=== PATIENT | female | born 1980 | race Two or more races ===

== ENCOUNTER 2020-07-22 10:18 | Outpatient (REF) | payer MEDICAID, SELFPAY | END 2020-07-22 10:19 | disposition home or self-care (01) | LOC: HO.LAB 10:18 | PROVIDERS: Visit Provider Internal Medicine | DX: Z20.828 Contact with and (suspected) exposure to other viral communicable diseases (principal) | CPT/HCPCS: C9803; U0003 ==

== ENCOUNTER 2020-10-05 14:27 | Outpatient (REF) | payer MEDICAID, SELFPAY ==
[2020-10-05 16:26] LABS: MANUAL DIFF FLAG NO
[2020-10-05 16:29] LABS: Basophils Percent Auto 0.2 % (0-2); Eosinophils Absolute Auto 0.2 X10*3/uL (0.0-0.4); Eosinophils Percent Auto 2.7 % (0-4); Hematocrit 35.5 % (37-47); Hemoglobin 10.5 g/dl (12.0-16.0); Imm Gran Abs Auto 0.04 X10*3/uL (0.00-0.03); Imm Gran Pct Auto 0.4 % (0.0-0.4); Lymphocytes Absolute Auto 2.1 X10*3/uL (1.2-4.9); Lymphocytes Percent Auto 23.6 % (20-40); Mean Corpuscular HGB Conc 29.6 g/dl (31.0-35.0); Mean Corpuscular Hemoglobin 23.1 pg (27.0-33.0); Mean Corpuscular Volume 78.2 fL (80-98); Mean Platelet Volume 9.7 fL (9.4-12.3); Monocytes Absolute Auto 0.7 X10*3/uL (0.1-1.2); Monocytes Percent Auto 7.9 % (2-11); Neutrophils Absolute Auto 5.9 X10*3/uL (2.0-8.3); Neutrophils Percent Auto 65.2 % (45-73); Platelet Count 321 X10*3/uL (160-400); Red Blood Count 4.54 X10*6/uL (4.20-5.50); Red Cell Distribution Width 14.1 % (11.0-16.0)
[2020-10-05 16:51] LABS: Anion Gap 11 (12-20); Blood Urea Nitrogen 12 mg/dL (9-16); Carbon Dioxide 27 mmol/L (22-29); Chloride 106 mmol/L (96-108); Estimated Glomerular Filt Rate > 60; Glucose Random 76 mg/dL (60-115); Potassium 3.7 mmol/l (3.3-5.1); Sodium 140 mmol/L (135-145)
[2020-10-05 16:52] LABS: D Dimer < 200 NG/ML
[2020-10-05 17:17] LABS: Erythrocyte Sedimentation Rate 16 MM/HR (0-20)
[2020-10-07 02:27] LABS: Cyclic Citrullinated Peptide <16 UNITS
[2020-10-07 11:57] LABS: IgA 438 mg/dL (47-310); IgG 1124 mg/dL (600-1640); IgM 94 mg/dL (50-300)
== END 2020-10-05 14:28 | disposition home or self-care (01) ==
LOC: HO.LAB 14:27
PROVIDERS: PCP Internal Medicine Geriatric Medicine; Visit Provider Hospitalist
DX: J18.9 Pneumonia, unspecified organism (principal); J45.909 Unspecified asthma, uncomplicated; R07.9 Chest pain, unspecified; R91.8 Other nonspecific abnormal finding of lung field
CPT/HCPCS: 36415; 80048; 82784; 82785; 85025; 85379; 85652; 86003; 86200; 99202

== ENCOUNTER 2020-11-05 11:03 | Outpatient (REF) | payer MEDICAID, SELFPAY | END 2020-11-05 11:04 | disposition home or self-care (01) | LOC: HO.RESP 11:03 | PROVIDERS: PCP Internal Medicine Geriatric Medicine; Visit Provider Hospitalist | DX: J45.909 Unspecified asthma, uncomplicated (principal) | CPT/HCPCS: 94060; 94727; 94729; 99212 ==

== ENCOUNTER 2020-11-12 13:46 | Outpatient (REF) | payer MEDICAID, SELFPAY ==
--- NOTE | ~2020-11-12 | CT_ITS ---
EXAMINATION: CT CHEST WITHOUT CONTRAST CLINICAL INFORMATION: Pneumonia. COMPARISON: Chest 10/09/2019. TECHNIQUE: Multidetector volumetric CT imaging of the chest was done. Axial MIP volume rendering provided. Sagittal and coronal reformatted images were obtained. This CT examination was performed using dose optimization techniques as appropriate, variously including the following: *Automated exposure control *Adjustment of mA and/or kV according to patient size (this includes techniques or standardized protocols for targeted exams where dose is matched to indication/reason for exam; i.e. extremities or head) *Use of iterative reconstruction technique DLP: 175 mGy-cm FINDINGS: [employer]: Unremarkable. LUNGS: The lungs are well expanded and clear of acute pneumonic consolidation. There is a 3 mm calcified nodule right upper lobe image 189/5, noncalcified 6 mm nodule right lower lobe axial image 253/5, 1 mm nodule left lower lobe axial image 259/5, 2 mm calcified nodule right lung base image 447/5. No additional nodule seen. There is no ground-glass density. MEDIASTINUM: The thyroid lobes are symmetrical and normal. Central trachea and the bronchi are widely patent. Heart size and the great vessels are normal caliber. No pericardial effusion seen. No abnormal-sized mediastinal lymph nodes. Thyroid lobes are symmetrical and normal. PLEURA: There is no pleural effusion. No pleural mass or thickening. AXILLA: There are small shotty lymph nodes seen in left axilla. The largest lymph node measuring 1.2 cm and appears benign. UPPER ABDOMEN: Visualized liver, spleen, pancreas and bilateral adrenal glands are unremarkable. There are post gastric sleave and cholecystectomy changes. OSSEOUS STRUCTURES: No lytic or sclerotic process seen. CT/CT chest wo con IMPRESSION: A few scattered calcified nodules likely granulomas. There is a 6 mm noncalcified nodule right lower lobe. Recommend follow-up chest in 6-12 months followed by 18-24 months. No abnormal mediastinal or axillary lymphadenopathy seen.
== END 2020-11-12 13:47 | disposition home or self-care (01) ==
LOC: HO.CT 13:46
PROVIDERS: Visit Provider Hospitalist
DX: J18.9 Pneumonia, unspecified organism (principal); R91.8 Other nonspecific abnormal finding of lung field
CPT/HCPCS: 71250

== ENCOUNTER 2021-09-14 12:32 | Outpatient (REF) | payer MEDICAID, SELFPAY ==
--- NOTE | ~2021-09-14 | XR_ITS ---
EXAMINATION: XR CHEST CLINICAL INFORMATION: Asthma COMPARISON: Previous chest x-ray September [address] November 2020 TECHNIQUE: 2 views of the chest were obtained. FINDINGS: No significant abnormality is noted involving the heart, lungs, mediastinum, bony thorax or soft tissues. XR/XR chest 2V IMPRESSION: Unremarkable examination.
[2021-09-14 13:04] LABS: MANUAL DIFF FLAG NO
[2021-09-14 14:04] LABS: Basophils Percent Auto 0.3 % (0-2); Eosinophils Absolute Auto 0.7 X10*3/uL (0.0-0.4); Eosinophils Percent Auto 9.5 % (0-4); Hematocrit 39.1 % (37.0-47.0); Hemoglobin 11.9 g/dl (12.0-16.0); Imm Gran Abs Auto 0.03 X10*3/uL (0.00-0.03); Imm Gran Pct Auto 0.4 % (0.0-0.4); Lymphocytes Absolute Auto 1.9 X10*3/uL (1.2-4.9); Lymphocytes Percent Auto 24.3 % (20-40); Mean Corpuscular HGB Conc 30.4 g/dl (31.0-35.0); Mean Corpuscular Hemoglobin 24.6 pg (27.0-33.0); Monocytes Absolute Auto 0.5 X10*3/uL (0.1-1.2); Monocytes Percent Auto 5.8 % (2-11); Neutrophils Absolute Auto 4.7 x10*3/uL (2.0-8.3); Neutrophils Percent Auto 59.7 % (45-73); Platelet Count 336 X10*3/uL (160-400); Red Blood Count 4.83 X10*6/uL (4.20-5.50); Red Cell Distribution Width 13.2 % (11.0-16.0); White Blood Count 7.8 X10*3/uL (4.8-10.8)
[2021-09-14 14:15] LABS: D Dimer High Sensitivity 155 NG/ML
[2021-09-14 14:48] LABS: Ferritin 44 ng/mL (10-250)
[2021-09-14 14:54] LABS: Erythrocyte Sedimentation Rate 17 MM/HR (0-20)
[2021-09-16 01:48] LABS: Cyclic Citrullinated Peptide <16 UNITS
== END 2021-09-14 12:33 | disposition home or self-care (01) ==
LOC: HO.XRAY 12:32
PROVIDERS: Hospitalist; PCP Internal Medicine Geriatric Medicine; Visit Provider Internal Medicine
DX: R07.9 Chest pain, unspecified (principal); J45.21 Mild intermittent asthma with (acute) exacerbation; R91.8 Other nonspecific abnormal finding of lung field
CPT/HCPCS: 36415; 71046; 82728; 85025; 85379; 85652; 86200; 87040

== ENCOUNTER 2021-10-26 15:38 | Outpatient (REF) | payer MEDICAID, SELFPAY ==
--- NOTE | ~2021-10-26 | XR_ITS ---
EXAMINATION: XR FOOT, RIGHT CLINICAL INFORMATION: Pain in right foot. COMPARISON: None TECHNIQUE: AP, lateral, and oblique views of the right foot. FINDINGS: The bones and soft tissues are normal. No fracture. Alignment is anatomic. Joint spaces are maintained. XR/XR foot RT min 3V IMPRESSION: Unremarkable right foot.
== END 2021-10-26 15:39 | disposition home or self-care (01) ==
LOC: HO.XRAY 15:38
PROVIDERS: PCP Internal Medicine Geriatric Medicine; Visit Provider Nurse Practitioner Family
DX: M79.671 Pain in right foot (principal)
CPT/HCPCS: 73630

== ENCOUNTER → 2021-11-29 15:28 | Outpatient (BNVA) | payer MEDICAID, SELFPAY | PROVIDERS: PCP Internal Medicine Geriatric Medicine; Visit Provider Hospitalist | DX: J45.40 Moderate persistent asthma, uncomplicated (principal); J40 Bronchitis, not specified as acute or chronic; J18.9 Pneumonia, unspecified organism; J31.0 Chronic rhinitis; R91.8 Other nonspecific abnormal finding of lung field; Z91.013 Allergy to seafood; Z88.8 Allergy status to other drugs, medicaments and biological substances; Z91.041 Radiographic dye allergy status | CPT/HCPCS: 99212 ==

== ENCOUNTER → 2021-12-02 09:02 | Outpatient (BNVA) | payer MEDICAID, SELFPAY | PROVIDERS: PCP Internal Medicine Geriatric Medicine; Visit Provider Physician Assistant | DX: S90.31XA Contusion of right foot, initial encounter (principal) | CPT/HCPCS: 99202 ==

== ENCOUNTER 2022-04-08 10:43 | Outpatient (REF) | payer MEDICAID, SELFPAY ==
--- NOTE | ~2022-04-08 | XR_ITS ---
EXAMINATION: XR SHOULDER, RIGHT CLINICAL INFORMATION: Pain. COMPARISON: Chest radiograph 09/14/2021. TECHNIQUE: Four views of the right shoulder. FINDINGS: The bones and soft tissues are normal. No fracture. Glenohumeral and acromioclavicular alignment is anatomic with normal joint space. No abnormal soft tissue calcifications. XR/XR shoulder RT min 2V IMPRESSION: Normal right shoulder.
--- NOTE | ~2022-04-08 | XR_ITS ---
EXAMINATION: XR ELBOW, RIGHT CLINICAL INFORMATION: Pain. COMPARISON: None TECHNIQUE: AP, lateral, and oblique views of the right elbow. FINDINGS: Subtle cortical irregularity along the coronoid process, visualized on the lateral view. Joint alignment is anatomic. No joint effusion. Normal appearance of the soft tissues. XR/XR elbow RT min 3V IMPRESSION: Subtle cortical irregularity along the anterior surface of the coronoid process, nonspecific, recommend correlation with point tenderness.
== END 2022-04-08 10:44 | disposition home or self-care (01) ==
LOC: HO.XRAY 10:43
PROVIDERS: Absent Provider Internal Medicine Geriatric Medicine; PCP Internal Medicine Geriatric Medicine; Visit Provider Emergency Medicine
DX: M25.511 Pain in right shoulder (principal); M25.521 Pain in right elbow
CPT/HCPCS: 73030; 73080

== ENCOUNTER → 2022-05-11 09:50 | Outpatient (BNVA) | payer MEDICAID, SELFPAY | PROVIDERS: PCP Internal Medicine Geriatric Medicine; Visit Provider Physician Assistant | DX: M77.11 Lateral epicondylitis, right elbow (principal) | CPT/HCPCS: 99212 ==

== ENCOUNTER → 2022-06-13 09:18 | Outpatient (BNVA) | payer MEDICAID, SELFPAY | PROVIDERS: PCP Internal Medicine Geriatric Medicine; Visit Provider Dietitian, Registered | DX: E66.9 Obesity, unspecified (principal); Z68.34 Body mass index [BMI] 34.0-34.9, adult; Z71.3 Dietary counseling and surveillance | CPT/HCPCS: 97802 ==

== ENCOUNTER → 2022-11-01 12:53 | Outpatient (BNVA) | payer MEDICAID, SELFPAY | PROVIDERS: PCP Internal Medicine Geriatric Medicine; Visit Provider Dietitian, Registered | DX: E66.9 Obesity, unspecified (principal); Z68.35 Body mass index [BMI] 35.0-35.9, adult | CPT/HCPCS: 97803 ==

== ENCOUNTER → 2023-01-02 10:43 | Outpatient (BNVA) | payer MEDICAID, SELFPAY | PROVIDERS: PCP Internal Medicine Geriatric Medicine; Visit Provider Dietitian, Registered | DX: E66.9 Obesity, unspecified (principal); Z68.33 Body mass index [BMI] 33.0-33.9, adult | CPT/HCPCS: 97803 ==

== ENCOUNTER 2023-10-20 08:52 | Outpatient (REF) | payer MEDICAID, SELFPAY ==
[2023-10-20 11:40] LABS: MANUAL DIFF FLAG NO
[2023-10-20 11:47] LABS: Basophils Percent Auto 0.5 % (0-2); Eosinophils Absolute Auto 0.3 X10*3/uL (0.0-0.4); Eosinophils Percent Auto 3.9 % (0-4); Hematocrit 41.1 % (37.0-47.0); Hemoglobin 12.8 g/dl (12.0-16.0); Imm Gran Abs Auto 0.03 X10*3/uL (0.00-0.03); Imm Gran Pct Auto 0.5 % (0.0-0.4); Lymphocytes Absolute Auto 1.5 X10*3/uL (1.2-4.9); Lymphocytes Percent Auto 22.6 % (20-40); Mean Corpuscular HGB Conc 31.1 g/dl (31.0-35.0); Mean Corpuscular Hemoglobin 26.3 pg (27.0-33.0); Mean Corpuscular Volume 84.4 fL (80.0-98.0); Mean Platelet Volume 9.9 fL (9.4-12.3); Monocytes Absolute Auto 0.5 X10*3/uL (0.1-1.2); Monocytes Percent Auto 8.4 % (2-11); Neutrophils Absolute Auto 4.1 x10*3/uL (2.0-8.3); Neutrophils Percent Auto 64.1 % (45-73); Platelet Count 320 X10*3/uL (160-400); Red Blood Count 4.87 X10*6/uL (4.20-5.50); Red Cell Distribution Width 12.9 % (11.0-16.0); White Blood Count 6.4 X10*3/uL (4.8-10.8)
[2023-10-20 12:15] LABS: Iron 76 mcg/dL (30-160); Percent Iron Saturation 25 % (15-50); Total Iron Binding Capacity 301 mcg/dL (228-428); Unsaturated Iron Binding 225 ug/dL
[2023-10-20 12:30] LABS: Vitamin B12 327 pg/mL (200-900)
== END 2023-10-20 08:53 | disposition home or self-care (01) ==
LOC: HO.HHCL 08:52
PROVIDERS: Visit Provider Internal Medicine Geriatric Medicine
DX: D50.8 Other iron deficiency anemias (principal); E55.9 Vitamin D deficiency, unspecified; Z90.3 Acquired absence of stomach [part of]
CPT/HCPCS: 36415; 82607; 83540; 85025

== ENCOUNTER 2024-05-15 09:13 | Outpatient (REF) | payer MEDICAID, SELFPAY ==
[2024-05-15 11:08] LABS: MANUAL DIFF FLAG NO
[2024-05-15 11:18] LABS: Basophils Percent Auto 0.2 % (0-2); Hematocrit 42.1 % (37.0-47.0); Hemoglobin 13.1 g/dl (12.0-16.0); Imm Gran Abs Auto 0.03 X10*3/uL (0.00-0.03); Imm Gran Pct Auto 0.3 % (0.0-0.4); Lymphocytes Absolute Auto 0.9 X10*3/uL (1.2-4.9); Lymphocytes Percent Auto 9.7 % (20-40); Mean Corpuscular HGB Conc 31.1 g/dl (31.0-35.0); Mean Corpuscular Hemoglobin 26.2 pg (27.0-33.0); Mean Corpuscular Volume 84.2 fL (80.0-98.0); Mean Platelet Volume 10.3 fL (9.4-12.3); Monocytes Absolute Auto 0.2 X10*3/uL (0.1-1.2); Monocytes Percent Auto 2.6 % (2-11); Neutrophils Percent Auto 87.2 % (45-73); Platelet Count 339 X10*3/uL (160-400); Red Cell Distribution Width 13.5 % (11.0-16.0); White Blood Count 9.2 X10*3/uL (4.8-10.8)
[2024-05-15 11:55] LABS: Blood Urea Nitrogen 11 mg/dL (9-16); Vitamin D 25-OH Total 26.8 ng/mL (>30)
[2024-05-15 12:04] LABS: Vitamin B12 236 pg/mL (200-900)
== END 2024-05-15 09:14 | disposition home or self-care (01) ==
LOC: HO.HHCL 09:13
PROVIDERS: Nurse Practitioner Family; Visit Provider Emergency Medicine
DX: D50.8 Other iron deficiency anemias (principal); R68.89 Other general symptoms and signs
CPT/HCPCS: 36415; 82306; 82607; 84443; 84520; 85025

== ENCOUNTER 2024-07-11 15:02 | Outpatient (REF) | payer MEDICAID, SELFPAY ==
[2024-07-11 15:18] LABS: MANUAL DIFF FLAG NO
[2024-07-11 15:43] LABS: Basophils Percent Auto 0.5 % (0-2); Eosinophils Absolute Auto 0.5 X10*3/uL (0.0-0.4); Eosinophils Percent Auto 9.1 % (0-4); Hematocrit 40.8 % (37.0-47.0); Hemoglobin 13.1 g/dl (12.0-16.0); Imm Gran Abs Auto 0.01 X10*3/uL (0.00-0.03); Imm Gran Pct Auto 0.2 % (0.0-0.4); Lymphocytes Percent Auto 33.8 % (20-40); Mean Corpuscular HGB Conc 32.1 g/dl (31.0-35.0); Mean Corpuscular Hemoglobin 26.6 pg (27.0-33.0); Mean Corpuscular Volume 82.9 fL (80.0-98.0); Mean Platelet Volume 9.7 fL (9.4-12.3); Monocytes Absolute Auto 0.5 X10*3/uL (0.1-1.2); Monocytes Percent Auto 8.4 % (2-11); Neutrophils Absolute Auto 2.8 x10*3/uL (2.0-8.3); Platelet Count 291 X10*3/uL (160-400); Red Blood Count 4.92 X10*6/uL (4.20-5.50); Red Cell Distribution Width 13.4 % (11.0-16.0); White Blood Count 5.9 X10*3/uL (4.8-10.8)
[2024-07-11 16:10] LABS: Alanine Aminotransferase 41 U/L (0-31); Albumin Level 4.2 g/dL (3.5-5.0); Anion Gap 15 (12-20); Aspartate Amino Transferase 26 U/L (5-31); Bilirubin Total 0.2 mg/dL (0.0-1.0); Blood Urea Nitrogen 10 mg/dL (9-16); C Reactive Protein 0.15 mg/dL (< or = 0.50); Calcium 9.4 mg/dL (8.4-10.2); Carbon Dioxide 23 mmol/L (22-29); Chloride 109 mmol/L (96-108); Estimated Glomerular Filt Rate > 60; Glucose Random 99 mg/dL (60-115); Potassium 3.6 mmol/L (3.3-5.1); Sodium 143 mmol/L (135-145); Total Protein 7.6 g/dL (6.5-8.0)
[2024-07-11 16:32] LABS: Alkaline Phosphatase 78 U/L (39-117); Erythrocyte Sedimentation Rate 8 MM/HR (0-20)
[2024-07-17 08:18] LABS: Anti Nuclear Antibody Screen NEGATIVE (NEGATIVE)
== END 2024-07-11 15:03 | disposition home or self-care (01) ==
LOC: HO.LAB 15:02
PROVIDERS: PCP Internal Medicine Geriatric Medicine; Visit Provider Internal Medicine Geriatric Medicine
DX: M25.50 Pain in unspecified joint (principal); T14.8XXA Other injury of unspecified body region, initial encounter; R21 Rash and other nonspecific skin eruption; E06.3 Autoimmune thyroiditis; Z90.3 Acquired absence of stomach [part of]
CPT/HCPCS: 36415; 80053; 85025; 85652; 86038; 86140

== ENCOUNTER 2024-09-24 10:57 | Outpatient (REF) | payer MEDICAID, SELFPAY ==
--- NOTE | ~2024-09-24 | XR_ITS ---
EXAMINATION: XR CHEST CLINICAL INFORMATION: sob, cough COMPARISON: X-ray dated September 14, 2021. TECHNIQUE: 2 views of the chest were obtained. FINDINGS: Pulmonary reticular pattern slightly asymmetric to the right lung with prominence of the interstitial lung markings. No pleural effusion. No pneumothorax. No hyperinflation. Cardiomediastinal silhouette is normal in size. Mild S-shaped curvature of the thoracolumbar spine with mild spondylosis. Vascular clips right upper quadrant abdomen. XR/XR chest 2V IMPRESSION: Concerning acute small airway disease, right lung. Electronically signed by: Misael Peters MD 09/24/2024 12:01 PM [facility]
--- OUTSIDE RECORDS SUMMARY | 2024-09-24 13:00 | XMS_ITS | Continuity of Care Document ---
Author Organization [facility] Address [address] [place] [address]- Care Team Providers Care Lining Presser Name Role Phone Name John HUA Primary Care Physician Encounter [facility] Date(s): 07/30/24 - 08/29/24 [facility] [address] [place] [id number] Attending Physician: Kailey Bella Admitting Physician: Kailey Bella Referring Physician: trKailey Encounter Type: Triage Allergies, Adverse Reactions, Alerts Substance Criticality Severity Reaction Reaction Severity Status povidone iodine topical Active shellfish Active Contrast Dye Active Fish and shellfish causing toxic effect Active Immunizations Given and Recorded Vaccine Date Status Refusal Reason influenza virus vaccine, inactivated 08/29/13 Give n tetanus/diphtheria/pertussis, acel(Tdap) 08/29/13 Given Medications Albuterol = 90 mcg, Inhalation, 2 times a day, 0 Refills, Maintenance, 06/05/11 6:19:49 PM EDT Start Date: 06/05/11 Status: Ordered Repeat number: 1 albuterol 0.083% inhalation solution 3 mL = 2.5 mg, Inhalation, Every 6 hours, # 120 each, 0 Refills, Maintenance, 04/14/16 4:38:10 AM EDT, Solution Start Date: 04/14/16 Status: Ordered Quantity: 120.0 Unit: each Repeat number: 1 albuterol 90 mcg/inh inhalation powder 2 puffs, Inhalation, Every 4 hours, PRN as needed, # 1 each, 0 Refills, Maintenance, 04/14/16 4:38:02AM EDT, Powder Start Date: 04/14/16 Status: Ordered Quantity: 1.0 Unit: each Repeat number: 1 Clomid Tablet 50 mg, By Mouth, Daily, x 5 days, Refills 0, Maintenance, 06/20/19 9:27:20 AM EDT Start Date: 06/20/19 Status: Ordered Repeat number: 1 ferrous sulfate 325 mg oral tablet 1 tablet = 325 mg, By Mouth, 2 times a day, # 60 tablet, 3 Refills, Maintenance, 02/14/19 4:03:21 PM EDT, [id number] Start Date: 02/14/19 Status: Ordered Quantity: 60.0 Unit: tablet Repeat number: 4 ferrous sulfate 325 mg oral tablet 1 tablet = 325 mg, By Mouth, 2 times a day, # 60 tablet, 3 Refills, Maintenance, 02/14/19 4:03:57 PM EDT, Tablet, [id number] Start Date: 02/14/19 Status: Ordered Quantity: 60.0 Unit: tablet Repeat number: 4 Multi Vitamin+ 0 Refills, Maintenance, 06/13/19 9:27:29 AM EDT Start Date: 06/13/19 Status: Ordered Repeat number: 1 Saxenda 18 mg/3 mL subcutaneous solution = 0.6 mg, Subcutaneous Injection, Daily, # 9 mL, 0 Refills, Maintenance, 04/29/23 9:14:00 AM EDT, Solution, Partial fill upon patient request if the prescription is for a schedule II opioid drug. Start Date: 04/29/23 Stop Date: 05/06/23 Status: Ordered Quantity: 9.0 Unit: mL Repeat number: 1 Vitamin B12 2500 mcg sublingual tablet 1 tablet = 2,500 mcg, Sublingual, Daily, # 30 tablet, 0 Refills, Maintenance, 01/30/24 5:04:00 PM EDT, Tablet, [id number], Partial fill upon patient request if the prescription is for a schedule II opioid drug., 160, cm, 01/30/24 9:13:00 EDT, Height, 84, kg, 01/30/24 9:13:00 EDT, Dry Weight Start Date: 01/30/24 Status: Ordered Quantity: 30.0 Unit: tablet Repeat number: 1 Problem List Condition Confirmation Course Effective Dates Status Health St atus Informant Active asthma Confirmed Active Obese class I Confirmed Active Polycystic ovary syndrome Confirmed Active , normal, incidental Confirmed Active Social History Social History Type Response Smoking Status Never smoker entered on: 09/05/15 Sex Sex Representation Female (finding) Laboratory * Event Display: Non [facility] Lab Results Authored Date: * Event Display: Non [facility] Lab Results Authored Date: Patient Care team information Care Team Personnel Name: Destiny De Oliveira RN Position: [facility] RN Member Role: Primary Care Nurse Name: Brittany Zapata Position: [facility] Onco RN Member Role: Primary Care Nurse Name: Name John HUA Position: [facility] Outreach Member Role: PCP Address: [address] [place] [address] Telecom: Name: Shell Lynn RN Position: [facility] AMB Nurse Member Role: Primary Care Nurse Care Team Related Persons Name: HEATHER GASTELUM Name: EDNA RAYMUNDO Insurance Providers Guarantor name: WILLAM RAYMUNDO [facility] Information #: 1 Payer: [facility] FULL Member Number: NA Policy Number: NA Group Number: NA
--- OUTSIDE RECORDS SUMMARY | 2024-09-24 13:00 | XMS_ITS | Patient Health Record ---
Author Organization [employer] Address [address] [place] [address] Support Name Relationship Address Phone Yakelin Kelly Guarantor Unknown [phone] Allergies Allergen (clinical drug ingredient) Drug/Non Drug Allergy documented on EMR Reaction Allergy Type Onset Date Status Iodine Unknown Drug Allergy Active Shellfish (FN) Shellfish-derived Products Unknown Drug Allergy Active Reason For Referral No Information Medications Medication SIG (Take, Route, Frequency, Duration) Notes Start Date End Date Status Levothyroxine Sodium 125 MCG 1 tablet in the morning on an empty stomach Orally Once a day Active Dariela Allergy one daily Acti ve Phentermine HCl 37.5 MG 1 capsule Orally Once a day Active Social History Tobacco Use: Social History Observation Description Date Details (start date - stop date) Never Smoker NA - NA Tobacco Use/Smoking Question Answer Notes Are you a nonsmoker Alcohol Screen (Audit-C) Question Answer Notes Did you have a drink containing alcohol in the p ast year? No Points 0 Interpretation Negative Problems Problem Type SNOMED Code ICD Code Onset Dates Problem Status W/U Status Risk Notes Problem Hypothyroidism (40267660) Hypothyroidism, unspecified (E03.9) Active confirmed Problem Body mass index 30.00 to 34.99 (908906896068598) Body mass index (BMI) 34.0-34.9, adult (Z68.34) Active confirmed Problem Body mass index 40+ - severely obese (879928155) Body mass index [BMI]40.0-44.9, adult (Z68.41) Active confirmed Plan Of Treatment No Information Insurance Providers Payer Name Payer Address Payer Phone Subscriber Number Group Number Insured Name Patient Relationship to Insured Coverage Start Date Coverage End Date [place] s [address] [place] [phone] [id number] Yakelin Kelly Self - patient is the insured Medical (General) History Medical History History ICD Code Kyleigh's thyroiditis hypothyroidism anemia Surgical History Surgery Date(Month/Year) gastric sleeve, Dr. Nation 06/2017 cholecystectomy
== END 2024-09-24 10:58 | disposition home or self-care (01) ==
LOC: HO.HHCX 10:57
PROVIDERS: Visit Provider Internal Medicine
DX: R06.02 Shortness of breath (principal); R05.9 Cough, unspecified
CPT/HCPCS: 71046

== ENCOUNTER → 2024-09-24 10:58 | Outpatient (BNV) | payer MEDICAID, SELFPAY | PROVIDERS: Visit Provider Radiology Diagnostic Radiology | DX: R05.9 Cough, unspecified (principal) | CPT/HCPCS: 71046 ==

== ENCOUNTER 2025-01-24 10:02 | Outpatient (REF) | payer SELFPAY ==
--- OUTSIDE RECORDS SUMMARY | 2025-01-24 10:24 | XMS_ITS | Encounter Summary ---
Author Organization [facility] Address [address] [place] [address] Care Team Providers Care Make Ready Mechanic Name Role Phone Unavailable Primary Care Provider Unavailabl e Reason for Visit * Reason Onset Date Comments Medication Problem 01/21/2025 Zepbound Encounter Details Date Type Department Care Team (Late Contact Info) Description 01/21/2025 Telephone Bariatric Surgery [facility] [address] [phone] Nicolas Nation MD [address] [address] Medication Problem (Zepbound) Social History Tobacco Use Types Packs/Day Years Used Date Smoking Tobacco: Never Smokeless Tobacco: Never Alcohol Use Standard Drinks/Week Comments Not Currently 0 (1 standard drink = 0.6 oz pur e alcohol) Comments Unknown Sex and Gender Information Value Date Recorded Sex Assigned at Not on file Legal Sex Female 10:46 PM EST Gender Identity Not on file Sexual Orientation Not on file documented as of this encounter Progress Notes * Mónica Forman - 01/21/2025 3:10 PM EDT Patient would like to titrate up. Please cancel script for Zepbound 5 mg. Resend script for Zepbound 7.5 mg documented in this encounter Plan of Treatment Upcoming Encounters Date Type Department Care Team ([facility] Contact Info) Description 04/08/2025 8:45 AM EDT Office Visit Bariatric Surgery [facility] [address] [phone] Nicolas Nation MD [address] [place] [phone] documented as of this encounter Visit Diagnoses Not on filedocumented in this encounter
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
--- OUTSIDE RECORDS SUMMARY | 2025-01-24 10:24 | XMS_ITS | Patient Health Record ---
Author Organization [employer] Address [address] [place] [address] Support Name Relationship Address Phone Yakelin Kelly Guarantor Unknown [phone] Allergies Allergen (clinical drug ingredient) Drug/Non Drug [...] Status W/U Status Risk Notes Problem Hypothyroidism (03978589) Hypothyroidism, unspecified (E03.9) Active confirmed Problem Body mass index 30.00 to 34.99 (372332579060149) Body mass index (BMI) 34.0-34.9, adult (Z68.34) Active confirmed Problem Body mass index 40+ - severely obese (331981567) Body mass index [BMI]40.0-44.9, adult (Z68.41) Active confirmed Plan Of Treatment No Information Insurance Providers Payer Name Payer Address Payer Phone Subscriber Number Group Number Insured Name Patient Relationship to Insured Coverage Start Date Coverage End Date [place] s [address] [place] [address] [id number] Yakelin Kelly Self - patient is the insured Medical (General) History Medical History History ICD Code Kyleigh's thyroiditis hypothyroidism anemia Surgical History Surgery Date(Month/Year) gastric sleeve, Dr. Nation 06/2017 cholecystectomy
[2025-01-24 11:29] LABS: MANUAL DIFF FLAG NO
[2025-01-24 11:53] LABS: Basophils Percent Auto 0.4 % (0-2); Eosinophils Absolute Auto 0.4 X10*3/uL (0.0-0.4); Eosinophils Percent Auto 6.1 % (0-4); Hematocrit 39.7 % (37.0-47.0); Hemoglobin 12.3 g/dl (12.0-16.0); Imm Gran Abs Auto 0.03 X10*3/uL (0.00-0.03); Imm Gran Pct Auto 0.4 % (0.0-0.4); Lymphocytes Absolute Auto 1.6 X10*3/uL (1.2-4.9); Lymphocytes Percent Auto 21.8 % (20-40); Mean Corpuscular Hemoglobin 25.1 pg (27.0-33.0); Mean Platelet Volume 9.9 fL (9.4-12.3); Monocytes Absolute Auto 0.5 X10*3/uL (0.1-1.2); Monocytes Percent Auto 6.5 % (2-11); Neutrophils Absolute Auto 4.7 x10*3/uL (2.0-8.3); Neutrophils Percent Auto 64.8 % (45-73); Platelet Count 300 X10*3/uL (160-400); Red Cell Distribution Width 13.3 % (11.0-16.0); White Blood Count 7.3 X10*3/uL (4.8-10.8)
[2025-01-24 12:22] LABS: Alanine Aminotransferase 36 U/L (0-31); Albumin Level 4.2 g/dL (3.5-5.0); Alkaline Phosphatase 74 U/L (39-117); Anion Gap 10 (12-20); Aspartate Amino Transferase 26 U/L (5-31); Bilirubin Total 0.4 mg/dL (0.0-1.0); Blood Urea Nitrogen 12 mg/dL (9-16); Calcium 9.5 mg/dL (8.4-10.2); Carbon Dioxide 26 mmol/L (22-29); Chloride 108 mmol/L (96-108); Estimated Glomerular Filt Rate > 60; Glucose Random 126 mg/dL (60-115); Iron 108 mcg/dL (30-160); Percent Iron Saturation 31 % (15-50); Potassium 3.7 mmol/L (3.3-5.1); Sodium 140 mmol/L (135-145); Total Iron Binding Capacity 348 mcg/dL (228-428); Total Protein 7.4 g/dL (6.5-8.0); Unsaturated Iron Binding 240 ug/dL
[2025-01-24 12:40] LABS: Vitamin B12 315 pg/mL (200-900)
[2025-01-24 12:51] LABS: Ferritin 52 ng/mL (10-250); TSH reflex Free T4 2.37 uIU/mL (0.32-4.0); Vitamin D 25-OH Total 20.3 ng/mL (>30)
[2025-01-31 16:09] LABS: Vitamin B1 12 nmol/L (8-30)
== END 2025-01-24 10:03 | disposition home or self-care (01) ==
LOC: HO.HHCL 10:02
PROVIDERS: Visit Provider Internal Medicine Geriatric Medicine
DX: E03.9 Hypothyroidism, unspecified (principal); Z98.84 Bariatric surgery status
CPT/HCPCS: 36415; 80053; 82306; 82607; 82728; 82746; 83540; 84425; 84443; 85025